=== PATIENT | male | born 1960 | race American Indian/Alaskan Native ===

== ENCOUNTER 2020-07-01 10:06 | Outpatient (CLI) | payer OTHER ==
--- NOTE | 2020-07-01 17:41 | XRay Report ---
LEFT KNEE 2 VIEWS INDICATION / CLINICAL INFORMATION: Left knee pain . COMPARISON: None available. FINDINGS: BONES / JOINT(S): There is a knee prosthesis without complication. There is no evidence of fracture, subluxation, destructive lesion or joint effusion. SOFT TISSUES: No significant abnormality. ADDITIONAL FINDINGS: None. Signer Name: Prudencio Mederos MD Signed: 07/01/2020 5:36 PM Workstation Name: [id number]
== END 2020-07-01 10:07 | disposition home or self-care (01) ==
LOC: XRAY 10:06
PROVIDERS: ATTEND Internal Medicine
DX: M25.562 Pain in left knee (principal); M16.0 Bilateral primary osteoarthritis of hip